=== PATIENT | female | born 1970 | race Caucasian/White ===

== ENCOUNTER 2017-10-22 21:27 | Emergency (ER) | payer OTHER ==
[~2017-10-22] VITALS: Ht 162.6 cm; Wt 89.0 kg
[~2017-10-22 21:27] MED LIST: COZA25TA PO; ZOFR4TAB PO
[2017-10-22 21:29] VITALS: BP 158/104; PULSE 90; RESP 16; TEMP 98.5; O2SAT 98
[2017-10-22] MEDS ORDERED: SODIUM CHLORIDE 0.9% FLUSH 10 ML FLUSH IV FLUSH PRN (22:15)
--- NOTE | 2017-10-22 22:25 | PD ---
HPI Chief Complaint: Complaint Time Seen by Provider: 22:00 Travel History International Travel<30 days: No Contact w/Intl Traveler<30days: No Traveled to known affect area: No History of Present Illness HPI 47-year-old female with history of kidney stones here for evaluation of dysuria , increased urinary frequency, lightheadedness/dizziness. Symptoms started yesterday and have been intermittent. She denies fevers or chills. She has become nauseous but has not vomited. She denies hematuria or pyuria. She complains of left flank pain that radiates to her left lower abdomen which is sharp, moderate, intermittent, no modifying factors. PFSH Past Medical History Asthma: Yes Anxiety: No Depression: No Cancer: No Cardiovascular Problems: Yes Chemotherapy: No Chest Pain: Yes Congestive Heart Failure: No COPD: No Endocrine: No Gastrointestinal Disorders: Yes GERD: Yes Genitourinary: Yes Hiatal Hernia: No Hypertension: Yes Immune Disorder: No Implanted Vascular Access Dvce: No Kidney Stones: Yes Musculoskeletal: No Neurologic: No Psychiatric: No Reproductive: No Respiratory: Yes (ASTHMA) Immunizations Current: Yes Radiation Therapy: No Renal Failure: No Sleep Apnea: No Ulcer: No Tetanus Vaccination: < 5 Years Influenza Vaccination: Yes ?: Unknown Menopausal: Yes : 4 Para: 2 Miscarriage: 1 : 1 Tubal Ligation: Yes Past Surgical History Abdominal Surgery: Yes Section: Yes (X2) Genitourinary Surgery: Yes (lithotripsy) Gynecologic Surgery: Yes (2 C-sections, Tubes Ties, L Breast Lump ) Hysterectomy: No Other Surgery: Yes (BREAST LUMPECTOMIES X 2, LITHOTRIPSY X 2) Social History Alcohol Use: Yes (OCCASIONAL) Tobacco Use: No Substance Use: No Allergies-Medications (Allergen,Severity, Reaction): Coded Allergies: No Known Allergies (Unverified Adverse Reaction, Unknown, 10/22/17) Reported Meds & Prescriptions Reported Meds & Active Scripts Active Zofran (Ondansetron HCl) 4 Mg Tab 4 Mg PO Q6HR PRN Reported Cozaar (Losartan Potassium) 25 Mg Tab 25 Mg PO DAILY Review of Systems Except as stated in HPI: all other systems reviewed are Neg Physical Exam Narrative GENERAL: Well-developed, well-nourished, comfortable, no apparent distress. SKIN: Focused skin assessment warm/dry. No rash. HEAD: Atraumatic. Normocephalic. EYES: Pupils equal and round. No scleral icterus. No injection or drainage. ENT: No nasal bleeding or discharge. Mucous membranes pink and moist. NECK: Trachea midline. No JVD. CARDIOVASCULAR: Regular rate and rhythm. No murmur appreciated. RESPIRATORY: No accessory muscle use. Clear to auscultation. Breath sounds equal bilaterally. GASTROINTESTINAL: Abdomen soft, nondistended. Mild left lower quadrant tenderness without peritoneal signs. Rest of abdomen is soft and nontender. Normal bowel sounds. MUSCULOSKELETAL: No obvious deformities. No clubbing. No cyanosis. No edema. Mild left CVA tenderness. No right CVA tenderness. NEUROLOGICAL: Awake and alert. No obvious cranial nerve deficits. Motor grossly within normal limits. Normal speech. PSYCHIATRIC: Appropriate mood and affect; insight and judgment normal. Data Data Last Documented VS Vital Signs Date Time Temp Pulse Resp B/P (MAP) Pulse Ox O2 Delivery O2 Flow Rate FiO2 10/22/17 23:47 73 18 135/84 (101) 97 Room Air 10/22/17 21:29 98.5 Orders Orders Complete Blood Count With Diff (10/22/17 22:07) Comprehensive Metabolic Panel (10/22/17 22:07) Urinalysis - C+S If Indicated (10/22/17 22:07) Ct Abd/Pel W/O Iv Contrast (10/22/17 22:07) Iv Access Insert/Monitor (10/22/17 22:07) Ecg Monitoring (10/22/17 22:07) Oximetry (10/22/17 22:07) Sodium Chloride 0.9% Flush (Ns Flush) (10/22/17 22:15) Urine Culture (10/22/17 21:55) Ceftriaxone Inj (Rocephin Inj) (10/22/17 23:30) Labs Laboratory Tests Test 10/22/17 21:55 10/22/17 22:27 Urine Color YELLOW Urine Turbidity HAZY Urine pH 6.0 Urine Specific [place] 1.015 Urine Protein TRACE mg/dL Urine Glucose (UA) NEG mg/dL Urine Ketones NEG mg/dL Urine Occult Blood SMALL Urine Nitrite NEG Urine Bilirubin NEG Urine Urobilinogen LESS THAN 2.0 MG/DL Urine Leukocyte Esterase SMALL Urine RBC 27 /hpf Urine WBC 10 /hpf Urine Squamous Epithelial Cells 1 /hpf Urine Calcium Oxalate Crystals FEW /hpf Urine Bacteria RARE /hpf Urine Mucus FEW /lpf Microscopic Urinalysis Comment CULTURE INDICATED White Blood Count 11.2 TH/MM3 Red Blood Count 4.80 MIL/MM3 Hemoglobin 15.2 GM/DL Hematocrit 43.9 % Mean Corpuscular Volume 91.5 FL Mean Corpuscular Hemoglobin 31.6 PG Mean Corpuscular Hemoglobin Concent 34.6 % Red Cell Distribution Width 13.2 % Platelet Count 297 TH/MM3 Mean Platelet Volume 8.4 FL Neutrophils (%) (Auto) 56.8 % Lymphocytes (%) (Auto) 29.8 % Monocytes (%) (Auto) 9.6 % Eosinophils (%) (Auto) 3.0 % Basophils (%) (Auto) 0.8 % Neutrophils # (Auto) 6.4 TH/MM3 Lymphocytes # (Auto) 3.3 TH/MM3 Monocytes # (Auto) 1.1 TH/MM3 Eosinophils # (Auto) 0.3 TH/MM3 Basophils # (Auto) 0.1 TH/MM3 CBC Comment AUTO DIFF Differential Comment AUTO DIFF CONFIRMED Toxic Vacuolation PRESENT Platelet Estimate NORMAL Platelet Morphology Comment NORMAL Red Cell Morphology Comment NORMAL Blood Urea Nitrogen 12 MG/DL Creatinine 0.81 MG/DL Random Glucose 136 MG/DL Total Protein 8.0 GM/DL Albumin 4.1 GM/DL Calcium Level 9.2 MG/DL Alkaline Phosphatase 138 U/L Aspartate Amino Transf (AST/SGOT) 56 U/L Alanine Aminotransferase (ALT/SGPT) 40 U/L Total Bilirubin 0.6 MG/DL Sodium Level 142 MEQ/L Potassium Level 4.7 MEQ/L Chloride Level 106 MEQ/L Carbon Dioxide Level 29.3 MEQ/L Anion Gap 7 MEQ/L Estimat Glomerular Filtration Rate 75 ML/MIN [facility] Medical Decision Making Medical Screen Exam Complete: Yes Emergency Medical Condition: Yes Differential Diagnosis Nephrolithiasis, ureterolithiasis, UTI, pyelonephritis, cystitis, colitis, metabolic abnormality, anemia Narrative Course Bedside transabdominal ultrasound was performed at time of history and physical exam shows a full bladder. The patient went to the restroom, and post void residual using the curvilinear ultrasound probe shows an empty bladder. Vital signs show heart rate 73, blood pressure 135/84, pulse ox 97% on room air , oral temp of 98.5F. CBC: WBC 11.2, hemoglobin 15.2, hematocrit 43.9, platelets 297. CMP is essentially unremarkable. UA: Hazy urine, small occult blood, small leukocyte esterase, 27 rbc's, 10 wbc's, few calcium oxalate crystals, rare bacteria CT abdomen pelvis: CONCLUSION: 1. Tiny cysts in the liver. 2. Innumerable lateral nonobstructing renal calculi and left renal scarring again noted. 3. Urothelial thickening of the left renal pelvis is suspected. 4. No evidence of bowel obstruction. Patient was made aware of all findings. She is resting comfortably. She was given a dose of IV Rocephin for her UA findings. She states she feels well enough to go home. I will discharge her home with a prescription for Bactrim. She was advised to follow-up with either her primary care physician or her urologist Dr. Hernandez this week. She was advised on when to return to the emergency department. She verbalizes understanding and agreement with plan. Procedures Procedure Narrative Bedside transabdominal ultrasound/post void residual volume measurement: Using the curvilinear ultrasound probe, a bedside ultrasound was performed prior to and after urination. Prior to urination there was a full bladder, after urinating, the bladder is completely empty. Diagnosis Primary Impression: UTI (urinary tract infection) Qualified Codes: N30.01 - Acute cystitis with hematuria Additional Impressions: Nephrolithiasis Lightheadedness Referrals: Nelson Hernandez DO 3 days Primary Care Physician 3 days Additional Instructions: Follow-up with your primary care physician this week. Follow-up with your urologist Dr. Hernandez this week. Taking antibiotics as prescribed. Return to the emergency department for worsening symptoms or any other concerns. Scripts Sulfamethoxazole-Trimethoprim (Bactrim DS) 800-160 Mg Tab 1 TAB PO BID for Infection, #14 TAB 0 Refills Prov: Chris Reese MD 10/22/17 Disposition: DISCHARGE HOME Condition: Stable Chris Reese MD Oct 22, 2017 22:25
[2017-10-22 22:35] LABS: BACTERIA, URINE RARE /hpf; BLOOD, URINE SMALL (NEG); CALCIUM OXALATE CRYSTALS,URINE FEW /hpf; COMMENT (UR) CULTURE INDICATED; CULTURE IF INDICATED CULTURE INDICATED; GLUCOSE,URINE NEG (NEG); KETONE, URINE NEG (NEG); MUCUS URINE FEW /lpf (OCC); NITRITE,URINE NEG (NEG); SQUAMOUS EPITHELIAL CELL URINE 1 /hpf (0-5); URINE COLOR YELLOW (YELLW/STRAW)
[2017-10-22 22:50] LABS: AUTOMATED NEUTROPHIL # 6.4 TH/MM3 (1.8-7.7); BASOPHIL # 0.1 TH/MM3 (0-0.2); BASOPHIL % 0.8 % (0.0-2.0); EOSINOPHIL # 0.3 TH/MM3 (0-0.4); HEMATOCRIT 43.9 % (35.0-46.0); LYMPH % 29.8 % (9.0-44.0); LYMPHOCYTE # 3.3 TH/MM3 (1.0-4.8); MEAN CELL VOLUME 91.5 FL (80.0-100.0); MEAN CORPUSCULAR HEMOGLOBIN 31.6 PG (27.0-34.0); MEAN CORPUSCULAR HGB CONC 34.6 % (32.0-36.0); MONO % 9.6 % (0.0-8.0); NEUT % 56.8 % (16.0-70.0); PLATELET COUNT 297 TH/MM3 (150-450); RED CELL DISTRIBUTION WIDTH 13.2 % (11.6-17.2); WHITE BLOOD COUNT 11.2 TH/MM3 (4.0-11.0)
[2017-10-22 23:01] LABS: HEMO FLAGS AUTO DIFF
--- NOTE | 2017-10-22 23:10 | RADRPT ---
EXAM DATE/TIME: 10/22/2017 22:24 [facility] COMPARISON: CT ABDOMEN & PELVIS W/O CONTRAST, September 08, 2016, 20:08. INDICATIONS : Difficulty urinating. ORAL CONTRAST: No oral contrast ingested. RADIATION DOSE: 21.25 CTDIvol (mGy) MEDICAL HISTORY : Renal calculi. Hypertension. Gastroesophageal reflux disease.Asthma SURGICAL HISTORY : Tubal ligation. section. ENCOUNTER: Initial ACUITY: 2 days PAIN SCALE: 3/10 LOCATION: abdomen TECHNIQUE: Volumetric scanning of the abdomen and pelvis was performed. Using automated exposure control and ad justment of the mA and/or kV according to patient size, radiation dose was kept as low as reasonably achievable to obtain optimal diagnostic quality images. DICOM format image data is available electro nically for review and comparison. FINDINGS: Lung bases are clear. Osseous structures are intact. There is mild hepatic steatosis. There is a tiny cyst in the lateral segment left lobe on image 5. Gallbladder, spleen, pancreas, adrenal glands are unremarkable. There are nonobstructing renal calculi present bilaterally. Urinary bladder is unremark able. Ureters are unremarkable. There is significant scarring of the left kidney. There is no hydrone phrosis today however there is urothelial thickening of the left renal pelvis suspected on axial imag e 51. The urinary bladder, uterus and adnexa are unremarkable. No evidence of bowel obstruction, free fluid or free air. Appendix, small and large bowel are normal. No adenopathy or aneurysm. CONCLUSION: 1. Tiny cysts in the liver. 2. Innumerable ilateral nonobstructing renal calculi and left renal scarring again noted. 3. Urothelial thickening of the left renal pelvis is suspected. 4. No evidence of bowel obstruction. 1. Chandu Styles MD on October 22, 2017 at 23:05 Board Certified Radiologist. This report was verified electronically.
[2017-10-22 23:15] LABS: ALKALINE PHOSPHATASE 138 U/L (45-117); TOTAL BILIRUBIN ADULT 0.6 MG/DL (0.2-1.0)
[2017-10-22 23:19] LABS: ALT (GPT) 40 U/L (10-53); ANION GAP 7 MEQ/L (5-15); AST (GOT) 56 U/L (15-37); BICARBONATE 29.3 MEQ/L (21.0-32.0); BLOOD UREA NITROGEN 12 MG/DL (7-18); CHLORIDE 106 MEQ/L (98-107); GLOMERULAR FILTRATION RATE 75 ML/MIN (>89); SODIUM (NA) 142 MEQ/L (136-145)
[2017-10-22 23:20] LABS: POTASSIUM 4.7 MEQ/L (3.5-5.1)
[2017-10-22] MEDS ORDERED: cefTRIAXone INJ 1,000 MG in SODIUM CHLORIDE 0.9% INJ 100 ML IV ONE (23:30)
[2017-10-22 23:38] LABS: PLATELET ESTIMATE SMEAR NORMAL (NORMAL); PLATELET MORPHOLOGY NORMAL (NORMAL); SCAN/DIFF AUTO DIFF CONFIRMED; TOXIC VACUOLATION PRESENT (NONE SEEN)
[2017-10-22 23:47] VITALS: BP 135/84; PULSE 73; RESP 18; O2SAT 97
[2017-10-22] MEDS ORDERED: BACT800T5 PO (23:57)
== END 2017-10-23 00:55 | disposition home or self-care (01) ==
LOC: NEPD 21:27
DX: N39.0 Urinary tract infection, site not specified (principal); N20.0 Calculus of kidney; R42 Dizziness and giddiness; R11.0 Nausea; K76.89 Other specified diseases of liver; I10 Essential (primary) hypertension; J45.909 Unspecified asthma, uncomplicated; K21.9 Gastro-esophageal reflux disease without esophagitis; Z87.442 Personal history of urinary calculi
CPT/HCPCS: 74176; 80053; 81001; 84703; 85025; 87086; 96365; 99285; J0696